=== PATIENT | male | born 1960 | race Caucasian/White ===

== ENCOUNTER 2019-05-06 09:47 | Day surgery (SDC) | payer OTHER ==
[2019-05-06] MEDS ORDERED: IODIXANOL LOCM 100 ML BTL (10:47)
[2019-05-06] MEDS ORDERED: LIDOCAINE 1% (MDV) 20 ML INJ (10:47)
[2019-05-06] MEDS ORDERED: HEPARIN 1000 UNITS/ML 10 ML INJ (10:48)
[2019-05-06] MEDS ORDERED: HEPARIN 1000 UNITS/NS (A-LINE) 1,000 ML (10:48)
== END 2019-05-06 15:50 | disposition home or self-care (01) ==
LOC: SDS 09:47
DX: I12.0 Hypertensive chronic kidney disease with stage 5 chronic kidney disease or end stage renal disease (principal); N18.6 End stage renal disease
CPT/HCPCS: 36901; 36907